=== PATIENT | female | born 1995 | race Caucasian/White ===

== ENCOUNTER 2018-07-26 06:36 | Emergency (ER) | payer OTHER ==
[~2018-07-26] VITALS: Ht 167.6 cm; Wt 78.1 kg
[2018-07-26 06:46] VITALS: BP 146/98
--- NOTE | 2018-07-26 07:08 | NUR ---
PT WAS 18 WEEKS WHEN SHE HAD A ELECTIVE [facility] [place]
[2018-07-26] MEDS ORDERED: ondansetron 4mg rapidly disintigrating tab PO ONE (07:20)
[2018-07-26] MEDS ORDERED: ketorolac trometh inj. 60 MG/2 ML VIAL IM ONE (07:20)
--- NOTE | 2018-07-26 07:41 | NUR ---
PT COMPLANS OF PAIN MEDICATED WITH TORDAOL AND ZOFRAN. ASKED TO GIVE A URINE SAMPLE PT STATED SHE WOULD ATTEMPT TO GIVEN SAMPLE
[2018-07-26 07:49] LABS: BASOPHILS # (AUTO) 0.1 X10'3 (0-0.2); BASOPHILS % (AUTO) 0.8 % (0-1); EOSINOPHILS # (AUTO) 0.1 X10'3 (0-0.9); EOSINOPHILS % (AUTO) 0.7 % (0-6); HEMATOCRIT 41.7 % (35.0-45.0); HEMOGLOBIN 14.3 g/dl (12.0-16.0); LYMPHOCYTES # (AUTO) 0.6 X10'3 (1.1-4.8); LYMPHOCYTES % (AUTO) 4.2 % (21-51); MEAN CORPUSCULAR HEMOGLOBIN 30.8 PG (27.0-31.0); MEAN CORPUSCULAR HGB CONC 34.2 % (33.0-36.5); MEAN CORPUSCULAR VOLUME 89.9 FL (78-98); MEAN PLATELET VOLUME 7.8 FL (7.4-10.4); MONOCYTES # (AUTO) 0.8 X10'3 (0-0.9); MONOCYTES % (AUTO) 5.8 % (2-12); NEUTROPHILS # (AUTO) 12.9 X10'3 (1.8-7.7); NEUTROPHILS % (AUTO) 88.5 % (42-75); PLATELET COUNT 303 X10'3 (140-440); RED BLOOD COUNT 4.64 X10'6 (4.20-5.60); RED CELL DISTRIBUTION WIDTH 13.8 % (11.5-14.5); WHITE BLOOD COUNT 14.6 X10'3 (4.5-11.0)
[2018-07-26 08:04] LABS: ALANINE AMINOTRANSFERASE 18 U/L (12-78); ALBUMIN 2.8 G/DL (3.4-5.0); ALBUMIN/GLOBULIN RATIO 0.7 (1.1-1.5); ALKALINE PHOSPHATASE 52 IU/L (46-116); ANION GAP 12 (8-16); ASPARTATE AMINO TRANSFERASE 13 U/L (10-37); BILIRUBIN,TOTAL 0.2 MG/DL (0.1-1.0); BLOOD UREA NITROGEN 8 MG/DL (7-18); BUN/CREATININE RATIO 11.9 (6.6-38.0); CALCIUM 8.6 MG/DL (8.5-10.1); CHLORIDE 103 MMOL/L (99-107); CREATININE 0.67 MG/DL (0.40-0.90); GLUCOSE 139 MG/DL (70-104); SODIUM 138 MMOL/L (135-145); TOTAL CARBON DIOXIDE 23.5 MMOL/L (24-32); TOTAL PROTEIN 6.9 G/DL (6.4-8.2); eGFR > 90 ML/MIN
[2018-07-26 08:11] LABS: INR 0.9 INR; PARTIAL THROMBOPLASTIN TIME 24 SECONDS (22-32); PROTHROMBIN TIME 9.2 SECONDS (9.0-12.0)
[2018-07-26 08:11] LABS: CLARITY,URINE SLIGHTLY CLOUDY (Clear); COLOR,URINE YELLOW (Yellow); GLUCOSE, URINE NEGATIVE (Neg); KETONES,URINE NEGATIVE (Neg); LEUKOCYTE ESTERASE ,URINE TRACE (Neg); NITRITES, URINE NEGATIVE (Neg); OCCULT BLOOD,URINE SMALL (Neg); PH,URINE 5.5 (4.8-8.0); PROTEIN,URINE 100 mg/dl (Neg); UROBILINOGEN,URINE 0.2 E.U/dL (0.2-1.0)
[2018-07-26 08:12] LABS: UA COLLECTION TYPE VOIDED
[2018-07-26 08:15] LABS: TOTAL CELLS COUNTED 100
[2018-07-26 08:16] LABS: PLATELET ESTIMATE NORMAL
[2018-07-26 08:17] LABS: BACTERIA,URINE 1+ /HPF (Neg); WBC,URINE 30-50 /HPF (0-4)
[2018-07-26 08:18] LABS: MUCUS STRANDS NONE SEEN /LPF (Neg); RENAL CELLS, URINE FEW /HPF; SQUAMOUS EPITHELIAL CELL,UR FEW /LPF (FEW); WBC CLUMPS,URINE MODERATE /HPF (NEGATIVE)
[2018-07-26] MEDS ORDERED: CefTRIAXone 2gm/D5W 50ml 50 ML IV ONE (08:25)
[2018-07-26 08:30] LABS: BETA HCG,QUANTITATIVE 2019 mIU/ml
[2018-07-26] MEDS ORDERED: IBUP-1984 PO (09:14)
[2018-07-26] MEDS ORDERED: CEPH500C5 PO (09:14)
== END 2018-07-26 09:37 | disposition home or self-care (01) ==
LOC: ER 06:37
DX: G89.18 Other acute postprocedural pain (principal); N39.0 Urinary tract infection, site not specified; F12.90 Cannabis use, unspecified, uncomplicated; F17.200 Nicotine dependence, unspecified, uncomplicated; Z79.899 Other long term (current) drug therapy
CPT/HCPCS: 36415; 76830; 76857; 80053; 81001; 84702; 85025; 85610; 85730; 87088; 96365; 96372; 99284; J0696; J1885